=== PATIENT | male | born 1970 ===

== ENCOUNTER 2018-12-31 09:02 | Emergency (ER) | payer OTHER ==
[~2018-12-31] VITALS: Ht 180.3 cm; Wt 104.3 kg
== END 2018-12-31 10:13 | disposition home or self-care (01) ==
LOC: ER 09:02
DX: R20.0 Anesthesia of skin (principal)

== ENCOUNTER 2019-04-16 09:50 | Emergency (ER) | payer OTHER ==
[~2019-04-16] VITALS: Ht 180.3 cm; Wt 104.3 kg
== END 2019-04-16 15:01 | disposition home or self-care (01) ==
LOC: ER 09:50
DX: R10.32 Left lower quadrant pain (principal)